=== PATIENT | male | born 1995 | race Caucasian/White ===

== ENCOUNTER 2018-10-28 14:17 | Emergency (ER) | payer OTHER ==
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
[2018-10-28 14:25] VITALS: BP 101/71; PULSE 66; TEMP 98.3; BMI 25.1
[2018-10-28] MEDS ORDERED: CYCLOBENZAPRINE HCL 10 MG TABLET (FP) PO ONE (15:44)
[2018-10-28] MEDS ORDERED: IBUPROFEN 600 MG TABLET (FP) PO ONE ×2 (15:44→16:18)
[2018-10-28] MEDS ORDERED: CYCLOBENZAPRINE HCL 10 MG TABLET (FP) ONE (16:18)
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
== END 2018-10-28 16:40 | disposition home or self-care (01) ==
LOC: JERFT 14:17
DX: M25.512 Pain in left shoulder (principal); M54.2 Cervicalgia; M25.562 Pain in left knee; V49.49XA Driver injured in collision with other motor vehicles in traffic accident, initial encounter; Y92.414 Local residential or business street as the place of occurrence of the external cause; Y93.89 Activity, other specified; Y99.8 Other external cause status
CPT/HCPCS: 99281-25

== ENCOUNTER 2021-02-11 17:21 | Emergency (ER) | payer OTHER ==
[2021-02-11 17:39] VITALS: BP 112/64; PULSE 56; TEMP 97.8; BMI 23.6
[2021-02-11] MEDS ORDERED: KETOROLAC TROMETHAMINE 30 MG/1 ML VIAL IM ONE (18:04)
[2021-02-11] MEDS ORDERED: LIDOCAINE 5% TOPICAL PATCH TP ONE (18:04)
[2021-02-11] MEDS ORDERED: KETOROLAC TROMETHAMINE 30 MG/1 ML VIAL ONE (18:16)
[2021-02-11] MEDS ORDERED: LIDOCAINE 5% TOPICAL PATCH ONE (18:16)
[2021-02-11] MEDS ORDERED: LIDOCAINE PATCH REMOVAL MC SCH (22:00)
== END 2021-02-11 18:49 | disposition home or self-care (01) ==
LOC: JERFT 17:21
PROC: 3E0233Z Introduction of Anti-inflammatory into Muscle, Percutaneous Approach (ICD-10-PCS; principal; 2021-02-11)
DX: S89.92XA Unspecified injury of left lower leg, initial encounter (principal); X50.0XXA Overexertion from strenuous movement or load, initial encounter; Y92.310 Basketball court as the place of occurrence of the external cause
CPT/HCPCS: 73562-TC-LT-FY; 99284-25

== ENCOUNTER 2022-09-03 13:05 | Emergency (ER) | payer OTHER ==
[2022-09-03 13:25] VITALS: BP 105/52; PULSE 50; RESP 18; TEMP 98.5; BMI 23.6
== END 2022-09-03 15:09 | disposition home or self-care (01) ==
LOC: JER 13:05 → JERFT 13:05
DX: R22.0 Localized swelling, mass and lump, head (principal); R22.1 Localized swelling, mass and lump, neck; R59.0 Localized enlarged lymph nodes
CPT/HCPCS: 99283-25

== ENCOUNTER 2024-04-11 19:11 | Emergency (ER) | payer OTHER ==
[2024-04-11 19:21] VITALS: BP 146/77; PULSE 97; RESP 18; TEMP 99.6; BMI 23.6
[2024-04-11] MEDS ORDERED: ACETAMINOPHEN 500 MG TABLET (FP) PO ONE (20:18)
[2024-04-11] MEDS ORDERED: KETOROLAC TROMETHAMINE 30 MG/1 ML VIAL IM ONE (20:18)
[2024-04-11] MEDS ORDERED: KETOROLAC TROMETHAMINE 30 MG/1 ML VIAL ONE (20:25)
[2024-04-11] MEDS ORDERED: ACETAMINOPHEN 500 MG TABLET (FP) ONE (20:25)
== END 2024-04-11 20:39 | disposition home or self-care (01) ==
LOC: JERFT 19:11
DX: J10.1 Influenza due to other identified influenza virus with other respiratory manifestations (principal); R09.81 Nasal congestion; R05.9 Cough, unspecified; R50.9 Fever, unspecified; Z20.822 Contact with and (suspected) exposure to COVID-19
CPT/HCPCS: 0241U-QW; 99283-25